=== PATIENT | female | born 1935 | race Caucasian/White ===

== ENCOUNTER → 2023-05-29 09:27 | Outpatient (REF) | payer OTHER, SELFPAY ==
[2023-05-29 10:34] LABS: INR 2.03; PT 22.8 Sec (11.4-14.6)
== END ==
LOC: OLABWIL 09:27
PROVIDERS: ATTENDING PHYSICIAN Internal Medicine
DX: I48.0 Paroxysmal atrial fibrillation (principal)
CPT/HCPCS: 36415; 85610

== ENCOUNTER → 2023-06-06 11:31 | Outpatient (REF) | payer OTHER, SELFPAY ==
[2023-06-06 12:09] LABS: INR 3.61
== END ==
LOC: OLABWIL 11:31
PROVIDERS: ATTENDING PHYSICIAN Internal Medicine
DX: I48.0 Paroxysmal atrial fibrillation (principal)
CPT/HCPCS: 36415; 85610

== ENCOUNTER → 2023-06-15 09:41 | Outpatient (REF) | payer OTHER, SELFPAY ==
[2023-06-15 10:27] LABS: INR 1.89; PT 21.9 Sec (11.4-14.6)
== END ==
LOC: OLABWPC 09:41
PROVIDERS: ATTENDING PHYSICIAN Internal Medicine Cardiovascular Disease
DX: I48.0 Paroxysmal atrial fibrillation (principal)
CPT/HCPCS: 36415; 85610

== ENCOUNTER 2023-08-17 19:57 | Observation (INO) | payer OTHER, SELFPAY ==
[2023-08-17] VITALS (8 sets, daily range): BP systolic 125–160; BP diastolic 72–98; PULSE 85–90; BMI 17.3
[2023-08-17 17:43] LABS: Urine Albumin Negative (Neg - Trace); Urine Bilirubin Negative (Negative); Urine Character Clear (Clear); Urine Color Yellow; Urine Glucose Negative (Negative); Urine Ketone 2+ (Negative); Urine Leukocyte Trace (Negative); Urine Nitrite Negative (Negative); Urine Occult Blood Negative (Negative); Urine Specific Gravity 1.025 (<1.030); Urine Urobilinogen Negative (Neg - 1+)
[2023-08-17 17:48] LABS: % Basophils 0.2 % (0-2); % Immature Granulocytes 0.4 % (0-0.5); % Lymphocytes 9.6 % (20.5-51.1); % Monocytes 8.6 % (1.7-9.3); % Neutrophils 81.2 % (42.2-75.2); Absolute Monocytes 0.9 10^3/uL (0.1-0.6); Absolute Neutrophils 8.8 10^3/uL (1.4-6.5); Hematocrit 36.5 % (37.0-47.0); Mean Corp Hgb Conc. 35.6 g/dL (33.0-37.0); Mean Corpuscular Hgb 32.2 pg (27.0-31.0); Mean Corpuscular Volume 90.3 fL (81.0-99.0); Mean Platelet Volume 10.4 fL (7.4-10.4); Nucleated Red Blood Cells % 0 %; Platelet Count 163 10^3/uL (130-400); Red Blood Cell Count 4.04 10^6/uL (4.20-5.40); Red Cell Dist. Width 13.1 % (11.5-14.5); White Blood Cell Count 10.8 10^3/uL (4.8-10.8)
[2023-08-17 17:49] LABS: Urine Mucus Few
[2023-08-17 17:50] LABS: Urine Bacteria Few (Negative); Urine Red Blood Cell 0-2 /HPF (0-2)
[2023-08-17 18:00] LABS: ALT (SGPT) 14 U/L (0-35); AST (SGOT) 20 U/L (14-36); Albumin 4.2 g/dl (3.5-5.0); Alkaline Phosphatase 31 U/L (38-126); Blood Urea Nitrogen 13 mg/dl (7-17); Calcium 9.5 mg/dl (8.4-10.2); Carbon Dioxide 27 mmol/L (22-30); Chloride 99 mmol/L (98-107); Estimated Creatinine Clearance 46 ml/min; Glucose 129 mg/dl (70-99); Potassium 3.8 mmol/L (3.5-5.1); Sodium 134 mmol/L (135-145); Total Bilirubin 1.3 mg/dl (0.2-1.3); Total Protein 6.6 g/dl (6.3-8.2); eGFR > 60.00
--- NOTE | 2023-08-17 18:12 | ED.GENMED ---
History of Present Illness
<Ariella Ambrose PA-C - Last Filed: 08/18/23 00:38>
General
Chief Complaint: Change in Mental Status
Source: patient, family and correction
Exam Limitations: clinical condition and altered mental status
Time Seen by Provider: 08/17/23 17:58
Travel History
Have you had any contact with someone who has COVID-19?: No
Do you have any symptoms of coronavirus? Fever > 100 degrees, chills, cough, shortness of breath, sore throat, loss of taste or smell, muscle aches, or headache?: No
History of Present Illness
History of Present Illness:
87 y/o F with h/o afib on eliquis, hypothyroid, chf
here with a change in mental status
from [facility] personal care (meaning pt can care for her ADLs but the staff gives meds to her
found at 4 pm in her bed without pants on sweating, underwear saturated in the bathroom and she wasn't putting words together well, seemed weak, wasn't able to sit up and as time did go on, pt seemed more alert and responded a little better but not
herself
pt is usually A&Ox3
she has nocomplaints and doesn't know why she is here, she does know she is in the hospital
no obvious head trauma
no recent illness
i spoke with RN at the facility who doesn't know when the last time she was seen normal was
son is here and says she has had some confusion regarding date/time and gets her days mixed up recently over the past several weeks to months but hasn't been this confused that he has noticed, however, he thinks 'it has been bulding'
the RN at the facility said she that she apparently got a dose of mecilzine at 5 am and she isn't sure why, there wasn't a note to state why, this is a PRN med.
Past History
<Ariella Ambrose PA-C - Last Filed: 08/18/23 00:38>
Past History
ED Past Medical History: Arrthythmia and CHF
ED Past Surgical History: Cardiac and Cholecystectomy
Social History
Tobacco: Non-smoker
Alcohol: None
Drug: None
Personal:
Living: assisted living
Employment: Not employed
Family History
Family History: Other (Noncontributory)
Review of Systems
<MATTEO Villavicencio Last Filed: 08/18/23 00:38>
Review of Systems
Allergies reviewed?: Yes
All Other Systems: Not applicable
Phy Exam
<MATTEO Villavicencio Last Filed: 08/18/23 00:38>
Physical Exam
Physical Exam:
GENERAL: Alert , in no apparent distress
HEAD: ncat
EYE: pupils equal and reactive
NECK: Supple
ENT: o/p clr, mmm.
CARDIAC: Regular rate and rhythm .no edema
LUNGS: Clear breath sounds bilaterally, no acute respiratory distress, no wheezes/rales/rhonchi
ABDOMEN: Soft, without focal tenderness, no r/g, no cvat, normal bowel sounds
NEUROLOGICAL: Alert and oriented x 2 (disoriented to time) cn intact, 5/5 strength, sensation intact, no focal neuro deficits
SKIN: Warm and dry, skin intact. no bruising
MUSCULOSKELETAL: No edema, well perfused. neg samuel's sign
moves both hips
PSYCH: confused mildly irritated about being here, josh at her gown
Course
<MATTEO Villavicencio Last Filed: 08/18/23 00:38>
Orders/Labs/Results
Orders:
Orders
08/17/23 Dinner
Regular
At Your Request: Limited Participation
Does patient need a safe tray?: No
08/17/23 17:35
CMP [Comprehensive Metabolic Panel] Urgent
Complete Blood Count/With Diff Urgent
Creatine Phosphokinase Urgent
Comment: ADD ON
TSH Reflex To Free T4 Urgent
Comment: ADD ON
Urinalysis Reflex To Culture Urgent
Date Specimen was Collected: 08/17/23
Time Specimen was Collected: 17:34
Urine Microscopic Reflex Cult Urgent
08/17/23 18:13
Add On- LAB Urgent
Tests Added?: tsh free t4
CT Head W/o Iv Contrast Urgent
Comment:
Reason For Exam: confused
08/17/23 18:14
Add On- LAB Urgent
Tests Added?: cpk
08/17/23 18:16
Electrocardiogram (*1) Urgent
Reason for Study: Other
Other Reason for Exam: ams
EKG- Treatment ONCE
COVID-19 Antigen Urgent
Source: Nasal Swab
Influenza A+B Rapid Molecular Urgent
JANUARY Source: Nasal Swab
Specimen Description:
08/17/23 19:05
CefTRIAXone [Rocephin] 1,000 mg IV NOW STA
08/17/23 19:13
CR Chest - 2 Views Urgent
Comment:
Reason For Exam: confusion
08/17/23 19:17
Sterile Water [Sterile Water For Injection] 10 ml .ROUTE .[facility]-MED ONE
08/17/23 19:46
Admit/Transfer Patient As Directed
Co-Sign Provider:
Level of Care: Observation services
Assign to:: Medical/Surgical
Physician / Group: hospitalist
Diagnosis: metabolic encephalopathy, cystitis
08/17/23 19:48
Code Status As Directed
Resuscitation Status: Do not resuscitate
Reached after discussion with pt or family/Healthcare POA: Yes
DNR Bracelet Application ONCE
08/17/23 22:24
0.9% Sodium Chloride 250 ml [Nss] 250 ml IV BOLUS
Acetaminophen [Tylenol] 650 mg PO Q4HPRN PRN
Amlodipine [Norvasc] 5 mg PO HS
Apixaban [Eliquis] 2.5 mg PO BID
Bisacodyl [Dulcolax] 10 mg RECTAL [id number] PRN
Docusate W/Senna [Senokot-S] 1 tablet PO BIDPRN PRN
Furosemide [Lasix] 20 mg PO BID AT 0800,1600
Latanoprost [Xalatan Ophthalmic Solution] See Dose Instructions BOTH EYES HS
Loperamide [Imodium] 2 mg PO Q6HPRN PRN
Losartan [Cozaar] 50 mg PO BID
Ondansetron Injectable [Zofran] 4 mg IV Q6HPRN PRN
Polyethylene Glycol Powder [Miralax] 17 grams PO DAILYPRN PRN
Rosuvastatin Calcium [Crestor] 10 mg PO HS
Simethicone [Mylicon] 80 mg PO [id number] PRN
08/17/23 22:24
VTE Contraindication Routine
VTE Mechanical Device Contraindication: Medical Contraindication
Pharmocologic Contraindication: Medical Contraindication
Activity As Directed
Activity Level: With Assistance
Orthostatic Vital Signs As Directed
Orthostatic VS Frequency: Now
Vital Signs As Directed
Frequency: Per unit guidelines
08/17/23 22:34
Carboxymethylcellulose [Refresh Celluvisc Gel] 1 drops BOTH EYES DAILYPRN PRN
08/18/23 06:00
Basic Metabolic Panel IN AM
Complete Blood Count/No Diff IN AM
Magnesium IN AM
Levothyroxine [Synthroid] 25 mcg PO DAILY @ 0600
08/18/23 08:00
Calcium Carbonate [Oscal Demarco 500] 500 mg PO DAILY
Multivitamin [Theragran] 1 tablet PO DAILY
Potassium Chloride [KCl] 10 meq PO DAILY
08/18/23 18:00
Metoprolol Xl [Toprol Xl] 50 mg PO QPM
08/18/23 20:00
CefTRIAXone [Rocephin] 1,000 mg IV Q24H
Abnormal Lab Results
08/17/23
17:35
RBC 4.04 L 10^6/uL
(4.20-5.40)
Hct 36.5 L %
(37.0-47.0)
MCH 32.2 H pg
(27.0-31.0)
Absolute Neuts (auto) 8.8 H 10^3/uL
(1.4-6.5)
Absolute Lymphs (auto) 1.0 L 10^3/uL
(1.2-3.4)
Absolute Monos (auto) 0.9 H 10^3/uL
(0.1-0.6)
Neutrophils % 81.2 H %
(42.2-75.2)
Lymphocytes % 9.6 L %
(20.5-51.1)
Sodium 134 L mmol/L
(135-145)
Glucose 129 H mg/dl
(70-99)
Alkaline Phosphatase 31 L U/L
(38-126)
Urine Ketones 2+ A
(Negative)
Leukocyte Esterase Rfl Trace A
(Negative)
Urine Bacteria (Reflex) Few A
(Negative)
08/17/23 17:35
08/17/23 17:35
Vital Signs
Initial and Last Documented VS:
Initial Vital Signs
Temp Pulse Resp BP Pulse Ox
99 F 83 18 151/98 94
08/17/23 17:20 08/17/23 17:20 08/17/23 17:20 08/17/23 17:20 08/17/23 17:20
Last Documented Vital Signs
Temp Pulse Resp BP Pulse Ox
98.2 F 87 15 144/86 97
08/17/23 23:04 08/17/23 23:15 08/17/23 23:04 08/17/23 23:15 08/17/23 23:04
<Amanda Eason MD - Last Filed: 08/17/23 19:22>
Orders/Labs/Results
Orders:
Orders
08/17/23 Dinner
Regular
At Your Request: Limited Participation
Does patient need a safe tray?: No
08/17/23 17:35
CMP [Comprehensive Metabolic Panel] Urgent
Complete Blood Count/With Diff Urgent
Creatine Phosphokinase Urgent
Comment: ADD ON
TSH Reflex To Free T4 Urgent
Comment: ADD ON
Urinalysis Reflex To Culture Urgent
Date Specimen was Collected: 08/17/23
Time Specimen was Collected: 17:34
Urine Microscopic Reflex Cult Urgent
08/17/23 18:13
Add On- LAB Urgent
Tests Added?: tsh free t4
CT Head W/o Iv Contrast Urgent
Comment:
Reason For Exam: confused
08/17/23 18:14
Add On- LAB Urgent
Tests Added?: cpk
08/17/23 18:16
Electrocardiogram (*1) Urgent
Reason for Study: Other
Other Reason for Exam: ams
EKG- Treatment ONCE
COVID-19 Antigen Urgent
Source: Nasal Swab
Influenza A+B Rapid Molecular Urgent
JANUARY Source: Nasal Swab
Specimen Description:
08/17/23 19:05
CefTRIAXone [Rocephin] 1,000 mg IV NOW STA
08/17/23 19:13
CR Chest - 2 Views Urgent
Comment:
Reason For Exam: confusion
08/17/23 19:17
Sterile Water [Sterile Water For Injection] 10 ml .ROUTE .[facility]
08/17/23 19:46
Admit/Transfer Patient As Directed
Co-Sign Provider:
Level of Care: Observation services
Assign to:: Medical/Surgical
Physician / Group: hospitalist
Diagnosis: metabolic encephalopathy, cystitis
08/17/23 19:48
Code Status As Directed
Resuscitation Status: Do not resuscitate
Reached after discussion with pt or family/Healthcare POA: Yes
DNR Bracelet Application ONCE
08/17/23 22:24
0.9% Sodium Chloride 250 ml [Nss] 250 ml IV BOLUS
Acetaminophen [Tylenol] 650 mg PO Q4HPRN PRN
Amlodipine [Norvasc] 5 mg PO HS
Apixaban [Eliquis] 2.5 mg PO BID
Bisacodyl [Dulcolax] 10 mg RECTAL [id number] PRN
Docusate W/Senna [Senokot-S] 1 tablet PO BIDPRN PRN
Furosemide [Lasix] 20 mg PO BID AT 0800,1600
Latanoprost [Xalatan Ophthalmic Solution] See Dose Instructions BOTH EYES HS
Loperamide [Imodium] 2 mg PO Q6HPRN PRN
Losartan [Cozaar] 50 mg PO BID
Ondansetron Injectable [Zofran] 4 mg IV Q6HPRN PRN
Polyethylene Glycol Powder [Miralax] 17 grams PO DAILYPRN PRN
Rosuvastatin Calcium [Crestor] 10 mg PO HS
Simethicone [Mylicon] 80 mg PO [id number] PRN
08/17/23 22:24
VTE Contraindication Routine
VTE Mechanical Device Contraindication: Medical Contraindication
Pharmocologic Contraindication: Medical Contraindication
Activity As Directed
Activity Level: With Assistance
Orthostatic Vital Signs As Directed
Orthostatic VS Frequency: Now
Vital Signs As Directed
Frequency: Per unit guidelines
08/17/23 22:34
Carboxymethylcellulose [Refresh Celluvisc Gel] 1 drops BOTH EYES DAILYPRN PRN
08/18/23 06:00
Basic Metabolic Panel IN AM
Complete Blood Count/No Diff IN AM
Magnesium IN AM
Levothyroxine [Synthroid] 25 mcg PO DAILY @ 0600
08/18/23 08:00
Calcium Carbonate [Oscal Demarco 500] 500 mg PO DAILY
Multivitamin [Theragran] 1 tablet PO DAILY
Potassium Chloride [KCl] 10 meq PO DAILY
08/18/23 18:00
Metoprolol Xl [Toprol Xl] 50 mg PO QPM
08/18/23 20:00
CefTRIAXone [Rocephin] 1,000 mg IV Q24H
Abnormal Lab Results
08/17/23
17:35
RBC 4.04 L 10^6/uL
(4.20-5.40)
Hct 36.5 L %
(37.0-47.0)
MCH 32.2 H pg
(27.0-31.0)
Absolute Neuts (auto) 8.8 H 10^3/uL
(1.4-6.5)
Absolute Lymphs (auto) 1.0 L 10^3/uL
(1.2-3.4)
Absolute Monos (auto) 0.9 H 10^3/uL
(0.1-0.6)
Neutrophils % 81.2 H %
(42.2-75.2)
Lymphocytes % 9.6 L %
(20.5-51.1)
Sodium 134 L mmol/L
(135-145)
Glucose 129 H mg/dl
(70-99)
Alkaline Phosphatase 31 L U/L
(38-126)
Urine Ketones 2+ A
(Negative)
Leukocyte Esterase Rfl Trace A
(Negative)
Urine Bacteria (Reflex) Few A
(Negative)
08/17/23 17:35
08/17/23 17:35
Vital Signs
Initial and Last Documented VS:
Initial Vital Signs
Temp Pulse Resp BP Pulse Ox
99 F 83 18 151/98 94
08/17/23 17:20 08/17/23 17:20 08/17/23 17:20 08/17/23 17:20 08/17/23 17:20
Last Documented Vital Signs
Temp Pulse Resp BP Pulse Ox
98.2 F 87 15 144/86 97
08/17/23 23:04 08/17/23 23:15 08/17/23 23:04 08/17/23 23:15 08/17/23 23:04
<Ariella Ambrose PA-C - Last Filed: 08/18/23 00:38>
MDM/Problems Addressed
Differential Diagnosis Includes:
uti, ams, cva, ich, dementia
MDM/Problems Addressed:
87 y/o F [facility] resident
seems much more confused than usual today when seen by staff this afternoon
unsure last known well time
no recent illness
was incontinent and with her pants off while in bed
no signs of trauma
no cmoplaints
here oriented x 2
doesn't know why she is here
pulling at her gown occasinoally, seems confused but redirectable
no focal deficits
urine is TRACE positive with some bacteria and mild LE but not many wbc and no nitrite
normal wbc but with left shift and temp 99
at this point, could be urine and some underlying dementia
also there was a ? dose of meclizine given to her this am when it is not usually given?? but that was at 5 am and doubtful to be the cause of confusion;
will admit
<Ariella Ambrose PA-C - Last Filed: 08/18/23 00:38>
*Critical Care Note
Total Time (30-74mins, 75-104mins- exclusive of procedures): Not Applicable
ED Attending Note
<Ariella Ambrose PA-C - Last Filed: 08/18/23 00:38>
-
Portions of this chart may have been created with voice recognition software.� Occasional wrong word or��sound alike� substitutions may have occurred due to the inherent limitations of voice recognition software.
<Amanda Eason MD - Last Filed: 08/17/23 19:22>
ED Attending Note
Patient seen and examined by attending physician: Yes
I performed the substantive portion of visit, reviewed & personally made and approve the management plan that is documented in note by myself or ANGELA.: Yes
ED Attending Note:
Patient presents in no acute distress. Nonfocal neurological exam. Lungs are clear abdomen is soft
Discharge Plan
Departure
Patient Disposition: Admit
Date of Disposition: 08/17/23
Time of Disposition: 18:54
Admit to: Med/Surg
Presentation/result/management discussed w/ accepting MD/DO: Hospitalist
Condition: Fair
Covid-19: Not Applicable
Discharge Problem:
Confusion
Interventions
Interventions:
*Risk Screen - Suicide Last Done: 08/17/23 17:20
*General Assessment Last Done: 08/17/23 17:20
*Neglect/Abuse Screening Last Done: 08/17/23 17:20
ED- Fall Risk Assessment Last Done: 08/17/23 17:20
*ED COVID-19 Vaccine History Last Done: 08/17/23 17:20
*Nursing Disposition Last Done: 08/17/23 22:25
ED- Neurological Assessment Last Done: 08/17/23 17:20
ED Swallowing Screen Last Done: 08/17/23 19:28
Discharge Date and Time
Discharge Date/Time: 08/17/23 22:25
[2023-08-17 18:46] LABS: COVID-19 Antigen Negative (Negative)
[2023-08-17 18:56] LABS: Creatine Phosphokinase 32 U/L (30-135)
[2023-08-17] MEDS: ROCEPHIN 1000 MG IV (19:23)
--- NOTE | 2023-08-17 19:26 | HPS.HSE ---
Family Physician
-
Family Physician: Carie Proctor
Chief Complaint
-
Altered mental status
History of Present Illness
This is an 87 y.o-year-old female with past medical history significant for atrial fibrillation on anticoagulation, s/ppm, hypothyroidism, history of CHF, presents to the emergency department with episode concerning for acute changes in mental
status. Patient lives at an assisted living facility where she had complete care for self cefepime given by Ms. my staff. She was found this afternoon indicating in bed with urinary incontinence and appeared confused. Unable to answer questions.
Different from apparent baseline. Unknown last normal. The son reported that the patient has been having increasing confusion at least for the last 6 days. She specifically reported that 3 days ago she seemed more confused than baseline. He also
reported that the patient has been having declining mental status over the last 6 months with difficulties in memory and intermittent confusion. No previous diagnosis of dementia. Upon arrival in the emergency department the patient had low-grade
temp but is otherwise at baseline. She was alert and oriented x 3. She was following commands. She only noted mild lower abdominal discomfort. She specifically denies knowledge of incontinence, dysuria, hematuria, flank pain, fevers. She
reports chronic diarrhea. Subjective chills noted while in the ED. She denies any headache, cough, shortness of breath, chest pain, palpitations, lightheadedness or dizziness. She endorsed some mild nausea which she attributes to feeling hungry
reporting that her appetite which was low few days ago is now back. She denies diarrhea. P.o. intake has been unchanged compared to baseline. No recent changes in medications.
In ED she had a temp of 99.5. BP 141/90, pulse 85, RR 16 and O2 sat of 95%. ECG w/ NSR, rate 84, pacs, LBBB. CT head was negative. U/A with trace bacteria but no pyuria. Trace LE and ketones. Xray without focal infiltrates. CBC within normal
limits. Chemistries shows Na of 134 unchanged from last tear. Labs otherwise unremarkable.
Medical History
Past Medical History
Past Medical History: Reports Arrhythmia (Atrial fibrillation), CHF, HTN and Hypothyroidism
Past Surgical History: Reports None
Social History
Unable to obtain full social history at this time due to: Dementia
Tobacco: Non-smoker
Alcohol: None
Drug: None
Personal:
Living: Assisted Living
Employment: Retired
Family History
Family History: Not pertinent
Allergies / Home Medications
Allergies reflects when Allergies were last updated in [employer].
Home Medications with original date entered in [employer]
Allergy/Medication List:
Allergies
Allergy/AdvReac Type Severity Reaction Status Date / Time
No Known Allergies Allergy Unverified 07/01/22 01:59
Home Medications
acetaminophen 325 mg capsule 650 mg PO Q4H PRN mild pain/temp>100F 07/01/22
acetaminophen 500 mg capsule 1,000 mg PO Q8H PRN moderate-severe pain 07/01/22
amlodipine 5 mg tablet 5 mg PO HS 07/01/22
apixaban 2.5 mg tablet (Eliquis) 2.5 mg PO BID 07/01/22
docusate sodium 100 mg capsule (Colace) 100 mg PO HS 07/01/22
furosemide 20 mg tablet 20 mg PO BID 07/01/22
levothyroxine 25 mcg tablet 25 mcg PO DAILY 07/01/22
losartan 50 mg tablet 50 mg PO BID 07/01/22
metoprolol succinate 50 mg tablet,extended release 24 hr 50 mg PO QPM 07/01/22
peg 400-propylene glycol 0.4 %-0.3 % eye gel drops (Systane Gel) 1 drp ophthalmic (eye) DAILY PRN dry eyes 07/01/22
potassium chloride 10 mEq tablet,extended release 10 meq PO DAILY 07/01/22
rosuvastatin 10 mg tablet 10 mg PO HS 07/01/22
sennosides 8.6 mg tablet (senna) 8.6 mg PO DAILY 07/01/22
simethicone 80 mg chewable tablet 80 mg PO Q12H PRN gas 07/01/22
calcium carbonate (Calcium 600) 600 mg PO DAILY 08/17/23
carbamide peroxide 6.5 % ear drops 5 drp EACH EAR [id number] PRN ear wax 08/17/23
latanoprost 0.005 % eye drops 1 drp BOTH EYES HS 08/17/23
loperamide 2 mg capsule (Imodium A-D) 2 mg PO Q6H PRN diarrhea 08/17/23
meclizine 25 mg tablet 50 mg PO DAILY PRN motion sickness 08/17/23
multivitamin with minerals 1 tab PO DAILY 08/17/23
vit A 300 mcg-C 200 mg-E 27 mg-lutein 2 mg and minerals tablet (I-Marily) 1 tab PO QPM 08/17/23
Review of Systems
-
History Source: Patient and Family
Constitutional: Reports Chills
EENT: Reports No Symptoms
Respiratory: Reports No Symptoms
Cardiac: Reports No Symptoms
Abdomen/GI: Reports Nausea and Diarrhea
: Reports Incontinence
Musculoskeletal: Reports No Symptoms
Skin: Reports No Symptoms
Neurological: Reports Weakness
Endocrine: Reports No Symptoms
Hematologic/Lymphatic: Reports No Symptoms
Psych: Reports No Symptoms
Physical Exam
Vital Signs
Vital Signs
Temp Pulse Resp BP Pulse Ox
99 F 82 21 136/90 94
08/17/23 17:20 08/17/23 19:15 08/17/23 19:15 08/17/23 19:00 08/17/23 19:15
Physical Exam
General: Well Developed, No Apparent Distress, Comfortable and Conversant
HEENT: NormoCephalic, Anicteric, Moist mucous membranes, Atraumatic and PERRLA
Respiratory: Clear
Cardiac: S1/S2 and Regular Rhythm
Breast: Deferred by me
GI: Soft, Non Distended, Normal Bowel Sounds and Tender (suprapubic)
Rectal: Deferred by Provider
Genito-urinary: No costovertebral tender
Musculoskeletal: No Clubbing, No Cyanosis and No Edema
Skin: Warm and Dry
Neuro: AO x 3 and Nonfocal/grossly intact
Psych: Calm
Laboratory Results
-
08/17/23 17:35
08/17/23 17:35
Laboratory Results
Total Bilirubin 1.3 mg/dl (0.2-1.3) 08/17/23 17:35
AST 20 U/L (14-36) 08/17/23 17:35
ALT 14 U/L (0-35) 08/17/23 17:35
Alkaline Phosphatase 31 U/L (38-126) L 08/17/23 17:35
Data Reviewed
-
Diagnostic Radiology: Image Personally Visualized and interpreted
CT Scan: Report Reviewed by me
Medical Tests (Nuc Med, Echo, EKG etc): Image Personally Visualized and interpreted
Lab Data: Labs Reviewed by me
Old Records: Reviewed
Impression/Plan
-
IMPRESSION:
Generally healthy 87 y.o with h/o hypothyroidism, hld, afib, HTN, CHF presenting to ED with acute episode of AMS (confusion, poor response, decreased appetite and incontinence). Appears to have worsening confusion at least 2 days ago according to
son and possibly since about 5 days ago.W/U in ED negative for acute stroke. Patient is essentially back to baseline with no focal neurological deficits. ECG w/o acute findings. Labs mostly unremarkable. Xray clear. COVID negative. U/A slightly
positive.
PLAN:
1.AMS- Suspect infectious etiology and most likely acute cystitis in setting of progressing dementia. There is low grade temp of 99.5. However urine is fairly equivocal. COVID is negative. Xray shows no signs of infiltrates or fluid overload.
Electrolytes are normal. Patient back to baseline without focal deficits. Unlikely TIA.
- admit to med surg
- urine cultures
- ceftriaxone for now
- she appears euvolemic and no signs of acute dehydration. Small fluid challenge of 500 ml NS only
- check tsh
- orthostatic vs
2. AFIB - NSR at this time.
- apixaban 2.5 bid
- rate control with metoprolol succinate
- keep K, Mag > 4,2
3. HTN - Normotensive.
- continue amlodipine, losartan and metoprolol
4. Hypothyroid - no signs of overt hypothyroidism
- tsh pending
- continuing levothyroxine 25mcg daily
5. Chronic diarrhea
- immodium prn
Regular diet
DVT - on apixaban
Code Status - DNR
[2023-08-17 19:59] LABS: TSH Reflex To Free T4 0.54 uIU/ml (0.47-4.68)
[2023-08-17] MEDS: NSS 250 IV (23:14)
[2023-08-17] MEDS: COZAAR 50 MG PO (23:15)
[2023-08-17] MEDS: XALATAN OPHTHALMIC SOLUTION 1 DROP BOTH EYES (23:16)
[2023-08-17] MEDS: LASIX 20 MG PO (23:16)
[2023-08-17] MEDS: CRESTOR 10 MG PO (23:16)
[2023-08-17] MEDS: NORVASC 5 MG PO (23:16)
[2023-08-17] MEDS: ELIQUIS 2.5 MG PO (23:16)
--- NOTE | 2023-08-17 23:30 | PTCARENOTE ---
Pt brought to floor from ED A+OX2, able to state name, is in hospital - stating 'it is the end of June'. Admission completed with patient and [facility] transfer form. Pt very forgetful, bed alarm in place. Care is ongoing.
--- NOTE | 2023-08-17 23:40 | PTCARENOTE ---
Pt with very confused conversation at times- stating 'get me some wet tissues for my lips' When asked pt if she meant chapstick she replied with yes. Is able to answer what different items in room are- 'water cup, tissue box.' Unable to follow
simple directions. Bed alarm in place. House ADVERTISING TEACHER aware- no new orders at this time.
[2023-08-18] MEDS: SYNTHROID 25 MCG PO (05:23)
[2023-08-18 05:50] VITALS: BP 137/84
[2023-08-18] MEDS: TYLENOL/FEVERALL 650 MG RECTAL (05:50)
[2023-08-18 05:51] LABS: Hematocrit 35.7 % (37.0-47.0); Hemoglobin 12.9 g/dL (12.0-16.0); Mean Corp Hgb Conc. 36.1 g/dL (33.0-37.0); Mean Corpuscular Hgb 32.3 pg (27.0-31.0); Mean Corpuscular Volume 89.5 fL (81.0-99.0); Mean Platelet Volume 10.4 fL (7.4-10.4); Platelet Count 149 10^3/uL (130-400); Red Blood Cell Count 3.99 10^6/uL (4.20-5.40); Red Cell Dist. Width 13.1 % (11.5-14.5); White Blood Cell Count 10.5 10^3/uL (4.8-10.8)
--- NOTE | 2023-08-18 06:11 | W.PN.UPDATE ---
Update Note
Progress Note Update
Patient continues with fluctuating confusion. Rectal temp 100.5. Rocephin IV continues for possible UTi source of infection. Family notes patient has had increasing confusion over past 6 months but has been worse past few days.. she has pacemaker so
clearance for possible MRI/MRA will be needed. Last known normal is unknown from prior to admission here.
--- NOTE | 2023-08-18 06:13 | PTCARENOTE ---
Pt woken up for AM meds, pt more confused, unable to state birthday, stuttering, difficulty getting words out, unable to answer questions. [facility] completed pt -2 for mild aphasia and unable to state month - stating '43'. BP 137/84 HR 93. House NAIL ASSEMBLY MACHINE OPERATOR
notified, states no need for rapid response at this time, temp 100.6 rectal, tylenol given.
[2023-08-18 06:32] LABS: Blood Urea Nitrogen 12 mg/dl (7-17); Calcium 9.1 mg/dl (8.4-10.2); Carbon Dioxide 28 mmol/L (22-30); Chloride 100 mmol/L (98-107); Estimated Creatinine Clearance 46 ml/min; Glucose 130 mg/dl (70-99); Magnesium 1.7 mg/dl (1.6-2.3); Potassium 3.3 mmol/L (3.5-5.1); Sodium 133 mmol/L (135-145); eGFR > 60.00
[2023-08-18] MEDS: THERAGRAN 1 TABLET PO (08:31)
[2023-08-18] MEDS: KCL 10 MEQ PO ×2 (08:32→10:46)
[2023-08-18] MEDS: COZAAR 50 MG PO ×2 (08:32→19:43)
[2023-08-18] MEDS: LASIX 20 MG PO ×2 (08:32→15:11)
[2023-08-18] MEDS: OSCAL CAL 500 500 MG PO (08:32)
[2023-08-18] MEDS: ELIQUIS 2.5 MG PO ×2 (08:32→19:43)
[2023-08-18 08:38] VITALS: BP 130/78
--- NOTE | 2023-08-18 09:40 | W.PN.HOSP.TC ---
Today's Communication/Plan
-
Empiric antibiotics pending urine cultures
Physical therapy evaluation
Assessment / Plan
Assessment / Plan
Impression:
Generally healthy 87 y.o with h/o hypothyroidism, hld, afib, HTN, CHF presenting to ED with acute episode of AMS (confusion, poor response, decreased appetite and incontinence). Appears to have worsening confusion at least 2 days ago according to
son and possibly since about 5 days ago.W/U in ED negative for acute stroke. Patient is essentially back to baseline with no focal neurological deficits. ECG w/o acute findings. Labs mostly unremarkable. Xray clear. COVID negative. U/A slightly
positive.
Toxic metabolic encephalopathy possibly secondary to UTI/fever in the patient with dementia
Dementia unspecified type vascular versus senile.
Hypokalemia
Conditions prior to admission:
Paroxysmal atrial fibrillation
Sick sinus syndrome status post pacemaker
Anticoagulation with apixaban
Essential hypertension
Hypothyroidism
Chronic diarrhea.
Plan:
Toxic metabolic encephalopathy suspect secondary to fever and possible UTI.
No focal findings on neurologic exam
Patient with delayed response to questions, although oriented to name, birthday, and place.
CT scan of the head with no acute abnormalities.
Presentation does not suggest any epileptic activity.
Slightly abnormal urinalysis with pending urine cultures, although patient could not offer any complaints suggestive of UTI
Chest x-ray within normal limits
TSH within normal limits.
Continue empiric antibiotics/ceftriaxone pending urine cultures. Blood cultures had not been collected in ED.
Currently no indication for additional imaging unless patient declared new neurologic symptoms.
Physical/Occupational Therapy assessment
Paroxysmal atrial fibrillation
Pacemaker in place
Currently in normal sinus rhythm.
Rate controlled with with metoprolol.
Continue anticoagulation with apixaban.
Essential hypertension.
No prior history of CHF, although patient is on Lasix with potassium supplementation
Current volume status compensated
Monitor closely.
Replete potassium and follow BMP.
Hypothyroidism
TSH compensated.
Continue levothyroxine
Chronic diarrhea.
Continue Imodium.
Disposition: Patient lives at assisted living with provision of meals and medications [id number]. At baseline independent with ambulation. Physical/Occupational Therapy while in the hospital for further disposition.
Plan of care discussed with patient's son over the phone.
CODE STATUS DNR.
DVT prophylaxis apixaban.
Anticipated Discharge: 24 - 48 hours
Subjective/Interval History
-
Date of Service: August 18, 2023
Objective Data
-
Labs:
Laboratory Results
08/18/23
05:24
WBC 10.5
Hgb 12.9
Hct 35.7 L
Plt Count 149
Sodium 133 L
Potassium 3.3 L
Chloride 100
Carbon Dioxide 28
BUN 12
Creatinine 0.6
Glucose 130 H
Calcium 9.1
Vital Signs:
Vital Signs
Temp Pulse Resp BP Pulse Ox
98.1 F 96 18 130/78 96
08/18/23 08:38 08/18/23 08:38 08/18/23 08:38 08/18/23 08:38 08/18/23 08:41
I&O
08/17/23 08/18/23 08/19/23
06:59 06:59 06:59
Intake Total 0 / 0
Balance 0 / 0
Physical Exam
-
General: Well Developed and No Apparent Distress
HEENT: Normocephalic, Atraumatic and Moist Mucous Membranes
Respiratory: Clear to Auscultation
Cardiac: Regular Rhythm and S1/S2; Negative Murmur, Rub or Gallop
GI: Soft, Nontender, Nondistended and Normal Bowel Sounds; Negative Organomegaly
Rectal: Deferred by Provider
Musculoskeletal: No Clubbing, No Cyanosis and No Edema
Skin: Negative Rash
Neuro: Awake, Alert, Oriented, AO x 3 (Name and place. Knows age and able to recall birthday. Slow response to questions.) and Nonfocal/Grossly Intact
[2023-08-18 10:47] VITALS: BP 141/81; PULSE 89; O2SAT 96
--- NOTE | 2023-08-18 14:52 | CM ---
met with patient at bedside who was confused and could not answer any questions.i called patient's son popeye who told me patient was living in [place] until jan 2022 when she entered [place] at [facility].patient ambulated I airplane captain,she needs
assistance wiyh bathing and grooming.patient with a hx of chf,afib,htn is adm with increased confusion.she is a dnr.dcotor suspects possible uti and she is on iv rocephin. patient was seen by therapy who recommending returing to with home
pt.referral made to vn.i received a call from nikita in [place] and gave her a clinical update.she is aware that [facility] will be following patient for home pt when dc.plan return to [facility] with [facility] and home therapy.
--- NOTE | 2023-08-18 15:22 | VNURNOTE ---
Home Health Liaison spoke with patient's son Eyad by phone at 1515 to discuss [facility]N nurse/therapy, visits, schedule and homebound status. Eyad is agreeable and understands that visits at home will be 2-3 x per week to assess and teach medical
management. Eyad will be contact for [facility] visits intially.
Eyad is aware that [facility] will contact him for start of care in 1-2 days after discharge from .
[facility] referral completed in [facility].
[2023-08-18 15:48] VITALS: BP 139/81
[2023-08-18 15:58] VITALS: BMI 17.8
[2023-08-18] MEDS: TOPROL XL 50 MG PO (17:10)
[2023-08-18] MEDS: ROCEPHIN 1000 MG IV (19:43)
[2023-08-18] MEDS: STERILE WATER FOR INJECTION 10 ML IV (19:43)
[2023-08-18] MEDS: CRESTOR 10 MG PO (21:51)
[2023-08-18] MEDS: TYLENOL 650 MG PO (21:51)
[2023-08-18] MEDS: NORVASC 5 MG PO (21:51)
[2023-08-18] MEDS: XALATAN OPHTHALMIC SOLUTION 1 DROP BOTH EYES (21:51)
[2023-08-18 23:39] VITALS: BP 109/69
[2023-08-19] MEDS: SYNTHROID 25 MCG PO (05:12)
[2023-08-19 06:00] VITALS: BMI 16.7
[2023-08-19 07:40] VITALS: BP 132/70
[2023-08-19] MEDS: COZAAR 50 MG PO (07:40)
[2023-08-19] MEDS: KCL 20 MEQ PO (07:41)
[2023-08-19] MEDS: LASIX 20 MG PO (07:41)
[2023-08-19] MEDS: OSCAL CAL 500 500 MG PO (07:41)
[2023-08-19] MEDS: THERAGRAN 1 TABLET PO (07:41)
[2023-08-19] MEDS: ELIQUIS 2.5 MG PO (07:41)
[2023-08-19 08:02] LABS: % Basophils 0.2 % (0-2); % Eosinophils 0.7 % (0-6); % Immature Granulocytes 0.2 % (0-0.5); % Lymphocytes 11.3 % (20.5-51.1); % Monocytes 10.1 % (1.7-9.3); % Neutrophils 77.5 % (42.2-75.2); Absolute Eosinophils 0.1 10^3/uL (0-0.7); Absolute Monocytes 0.9 10^3/uL (0.1-0.6); Absolute Neutrophils 6.8 10^3/uL (1.4-6.5); Hematocrit 37.7 % (37.0-47.0); Hemoglobin 12.8 g/dL (12.0-16.0); Mean Corpuscular Hgb 31.8 pg (27.0-31.0); Mean Corpuscular Volume 93.8 fL (81.0-99.0); Mean Platelet Volume 10.2 fL (7.4-10.4); Nucleated Red Blood Cells % 0 %; Platelet Count 154 10^3/uL (130-400); Red Blood Cell Count 4.02 10^6/uL (4.20-5.40); Red Cell Dist. Width 13.1 % (11.5-14.5); White Blood Cell Count 8.8 10^3/uL (4.8-10.8)
[2023-08-19 08:53] LABS: Blood Urea Nitrogen 15 mg/dl (7-17); Calcium 9.3 mg/dl (8.4-10.2); Carbon Dioxide 29 mmol/L (22-30); Chloride 98 mmol/L (98-107); Estimated Creatinine Clearance 45 ml/min; Glucose 100 mg/dl (70-99); Potassium 3.6 mmol/L (3.5-5.1); Sodium 134 mmol/L (135-145); eGFR > 60.00
--- NOTE | 2023-08-19 09:22 | W.PN.HOSP.TC ---
Today's Communication/Plan
-
Change antibiotics to oral today. Discharge planning in progress.
Assessment / Plan
Assessment / Plan
Physical exam:
General: Well Developed, Well Nourished and No Apparent Distress
HEENT: Normocephalic, Atraumatic and Moist Mucous Membranes
Respiratory: Clear to Auscultation; Negative Wheezes, Rales or Rhonchi
Cardiac: Regular Rhythm and S1/S2
GI: Soft, Nontender and Nondistended
Musculoskeletal: No Clubbing, No Cyanosis and No Edema
Neuro: Awake, Alert and Oriented
Psych: Calm
A/P:
Impression:
Generally healthy 87 y.o with h/o hypothyroidism, hld, afib, HTN, CHF presenting to ED with acute episode of AMS (confusion, poor response, decreased appetite and incontinence). Appears to have worsening confusion at least 2 days ago according to
son and possibly since about 5 days ago.W/U in ED negative for acute stroke. Patient is essentially back to baseline with no focal neurological deficits. ECG w/o acute findings. Labs mostly unremarkable. Xray clear. COVID negative. U/A slightly
positive.
Toxic metabolic encephalopathy possibly secondary to UTI/fever in the patient with dementia
Dementia unspecified type vascular versus senile.
Hypokalemia
Conditions prior to admission:
Paroxysmal atrial fibrillation
Sick sinus syndrome status post pacemaker
Anticoagulation with apixaban
Essential hypertension
Hypothyroidism
Chronic diarrhea.
Plan:
Toxic metabolic encephalopathy suspect secondary to fever and possible UTI.
No focal findings on neurologic exam
Patient with delayed response to questions, although oriented to name, birthday, and place.
CT scan of the head with no acute abnormalities.
Presentation does not suggest any epileptic activity.
Slightly abnormal urinalysis with pending urine cultures, although patient could not offer any complaints suggestive of UTI
Chest x-ray within normal limits
TSH within normal limits.
Continue empiric antibiotics/ceftriaxone pending urine cultures. Blood cultures had not been collected in ED.
Currently no indication for additional imaging unless patient declared new neurologic symptoms.
Physical/Occupational Therapy assessment
Today on 08/18:
Change antibiotics to oral
Cultures not substantiating the infectious diagnosis but will finish a short course given high suspicion upon admission.
Discussed with son over the phone today, Eyad
Discussed with attending RN today
Plan to discharge today back to assisted living
Paroxysmal atrial fibrillation
Pacemaker in place
Currently in normal sinus rhythm.
Rate controlled with with metoprolol.
Continue anticoagulation with apixaban.
Essential hypertension.
No prior history of CHF, although patient is on Lasix with potassium supplementation
Current volume status compensated
Monitor closely.
Replete potassium and follow BMP.
Hypothyroidism
TSH compensated.
Continue levothyroxine
Chronic diarrhea.
Continue Imodium.
CODE STATUS DNR.
DVT prophylaxis apixaban.
Anticipated Discharge: Today
Subjective/Interval History
-
Date of Service: August 19, 2023
Patient alert and she feels back to her normal. Afebrile. No headaches.
Objective Data
-
Labs:
Laboratory Results
08/19/23
07:34
WBC 8.8
Hgb 12.8
Hct 37.7
Plt Count 154
Sodium 134 L
Potassium 3.6
Chloride 98
Carbon Dioxide 29
BUN 15
Creatinine 0.6
Glucose 100 H
Calcium 9.3
Vital Signs:
Vital Signs
Temp Pulse Resp BP Pulse Ox
98.5 F 79 18 132/70 95
08/19/23 07:45 08/19/23 07:45 08/19/23 07:45 08/19/23 07:40 08/19/23 07:45
I&O
08/18/23 08/19/23 08/20/23
06:59 06:59 06:59
Intake Total 0 / 0 120 / 120
Balance 0 / 0 120 / 120
--- NOTE | 2023-08-19 13:53 | W.DCSUMMARY ---
Discharge Summary
Discharge Data
Date of Admission: 08/17/23
Date of Discharge: 08/19/23
-
Pending Results: No
Hospital Course
Patient 87 years old female with history of A-fib, hypothyroidism, CHF, presented to the hospital with mental status changes. There was a concern for UTI and cognitive deficits upon presentation. He was given empirically IV antibiotic. CT scan of
her head was negative for any acute abnormalities. She was given gentle hydration. Patient improved and back to her baseline. Cultures not definitive for infection but will continue with antibiotics for just a short course given suspicion upon
admission. Otherwise, patient is hemodynamically stable, neurologically intact, and blood work unremarkable. Discussed with family. If any concerns can proceed with psychological testing for cognitive evaluation as outpatient. She was evaluated
by PT and OT who recommended home health. Patient is cleared to be discharged in stable condition today back to her assisted facility.
Discharge duration: 32 minutes
Discharge Plan
-
Patient Disposition: Assisted Living
Discharge Diagnosis/Procedures: Toxic-metabolic encephalopathy with acute confusional state. Possible urinary tract infection. Rule out cognitive deficits. Paroxysmal atrial fibrillation. Sick sinus syndrome with pacemaker. Hypertension.
Chronic diarrhea. Hypothyroidism.
Diet: Low Cholesterol
Activity: As tolerated
Blood Work: Please PCP to order CBC, BMP within 1 week
Referrals:
Carie Proctor MD [Family Provider] - in less than 1 week
Prescriptions:
New
cefuroxime axetil 250 mg Tablet
250 mg PO BID 5 Days Qty: 10 0RF
Continued
losartan 50 mg Tablet
50 mg PO BID
sennosides [senna] 8.6 mg Tablet
8.6 mg PO DAILY
metoprolol succinate 50 mg Tablet Extended Release 24 Hr
50 mg PO QPM
potassium chloride 10 mEq Tablet Extended Release
10 meq PO DAILY
amlodipine 5 mg Tablet
5 mg PO HS
levothyroxine 25 mcg Tablet
25 mcg PO DAILY
docusate sodium [Colace] 100 mg Capsule
100 mg PO HS
furosemide 20 mg Tablet
20 mg PO BID
acetaminophen 500 mg Capsule
1,000 mg PO Q8H PRN (Reason: moderate-severe pain)
simethicone 80 mg Tablet,Chewable
80 mg PO Q12H PRN (Reason: gas)
rosuvastatin 10 mg Tablet
10 mg PO HS
acetaminophen 325 mg Capsule
650 mg PO Q4H PRN (Reason: mild pain/temp>100F)
Systane Gel 0.4-0.3 % Drops,Gel
1 drp OPHTHALMIC (EYE) DAILY PRN (Reason: dry eyes)
Eliquis 2.5 mg Tablet
2.5 mg PO BID
latanoprost 0.005 % drops
1 drp BOTH EYES HS
calcium carbonate [Calcium 600] 600 mg calcium (1,500 mg) Tablet
600 mg PO DAILY
meclizine 25 mg Tablet
50 mg PO DAILY PRN (Reason: motion sickness)
carbamide peroxide 6.5 % Drops
5 drp EACH EAR [id number] PRN (Reason: ear wax)
multivitamin with minerals Tablet
1 tab PO DAILY
I-Marily 300 mcg-200 mg-27 mg-2 mg Tablet
1 tab PO QPM
loperamide [Imodium A-D] 2 mg capsule
2 mg PO Q6H PRN (Reason: diarrhea)
Discharge Orders:
Discharge Patient (As Directed); Ordered 08/19/23
Ordered By: Watson Powell
Discharge Date and Time
Discharge Date/Time: 08/19/23 15:49
Print Language: TELUGU
[2023-08-19] MEDS: CEFTIN 250 MG PO (13:57)
--- NOTE | 2023-08-19 14:59 | CM ---
patient is stable for dc back to [facility].TME sec to fever/possible uti,iv abx changed to po..patient is stable for dc back to [facility].stefany floor nurse is giving report to charly zheng at [phone] at [facility].Therapy
has rec patient returning to [facility].fax is [phone].patient signed imm letter,family to transport her back to [facility].
[2023-08-19 15:25] VITALS: BP 132/78
== END 2023-08-19 15:49 | disposition home health service (06) ==
LOC: 4 EAST ACU 19:57
PROVIDERS: Internal Medicine; Physician Assistant; ADMITTING PHYSICIAN Internal Medicine; ATTENDING PHYSICIAN Hospitalist; EMERGENCY PHYSICIAN Emergency Medicine; FAMILY PHYSICIAN Internal Medicine
DX: G92.8 Other toxic encephalopathy (principal); I48.91 Unspecified atrial fibrillation; E03.9 Hypothyroidism, unspecified; I50.9 Heart failure, unspecified; I11.0 Hypertensive heart disease with heart failure; F03.90 Unspecified dementia, unspecified severity, without behavioral disturbance, psychotic disturbance, mood disturbance, and anxiety; K52.9 Noninfective gastroenteritis and colitis, unspecified; I48.0 Paroxysmal atrial fibrillation; I49.5 Sick sinus syndrome; E78.5 Hyperlipidemia, unspecified; E87.6 Hypokalemia; Z11.52 Encounter for screening for COVID-19; Z66 Do not resuscitate; Z79.01 Long term (current) use of anticoagulants; Z79.899 Other long term (current) drug therapy; Z95.0 Presence of cardiac pacemaker
CPT/HCPCS: 70450; 71046; 80048; 80053; 81003; 81015; 82550; 83735; 84443; 85025; 85027; 87502; 87811; 93005; 97162; 97166; 97530; 99285; G0378

== ENCOUNTER → 2023-08-25 11:06 | Outpatient (REF) | payer OTHER, SELFPAY ==
[2023-08-25 11:30] LABS: % Basophils 0.4 % (0-2); % Eosinophils 2.4 % (0-6); % Immature Granulocytes 0.4 % (0-0.5); % Monocytes 10.8 % (1.7-9.3); Absolute Eosinophils 0.1 10^3/uL (0-0.7); Absolute Lymphocytes 1.4 10^3/uL (1.2-3.4); Absolute Monocytes 0.6 10^3/uL (0.1-0.6); Absolute Neutrophils 3.2 10^3/uL (1.4-6.5); Hematocrit 34.6 % (37.0-47.0); Hemoglobin 11.8 g/dL (12.0-16.0); Mean Corp Hgb Conc. 34.1 g/dL (33.0-37.0); Mean Corpuscular Hgb 32.1 pg (27.0-31.0); Mean Platelet Volume 10.3 fL (7.4-10.4); Nucleated Red Blood Cells % 0 %; Platelet Count 211 10^3/uL (130-400); Red Blood Cell Count 3.68 10^6/uL (4.20-5.40); Red Cell Dist. Width 12.9 % (11.5-14.5); White Blood Cell Count 5.4 10^3/uL (4.8-10.8)
[2023-08-25 12:37] LABS: ALT (SGPT) 15 U/L (0-35); AST (SGOT) 21 U/L (14-36); Albumin 3.3 g/dl (3.5-5.0); Alkaline Phosphatase 33 U/L (38-126); Blood Urea Nitrogen 9 mg/dl (7-17); Calcium 8.8 mg/dl (8.4-10.2); Carbon Dioxide 29 mmol/L (22-30); Chloride 99 mmol/L (98-107); Glucose 86 mg/dl (70-99); HDL Cholesterol 47 mg/dl; LDL Cholesterol, Calculated 78 mg/dl; Potassium 3.7 mmol/L (3.5-5.1); Sodium 132 mmol/L (135-145); Total Bilirubin 0.4 mg/dl (0.2-1.3); Total Cholesterol 138 mg/dl (50-199); Total Protein 5.6 g/dl (6.3-8.2); Triglyceride 68 mg/dl (10-149); Very Low Density Lipoprotein 13 mg/dl (0-30); eGFR > 60.00
[2023-08-25 13:17] LABS: TSH Reflex To Free T4 1.52 uIU/ml (0.47-4.68)
== END ==
LOC: OLABWPC 11:06
PROVIDERS: ATTENDING PHYSICIAN Nurse Practitioner Family
DX: G92.8 Other toxic encephalopathy (principal)
CPT/HCPCS: 36415; 80053; 80061; 84443; 85025

== ENCOUNTER 2023-09-10 08:53 | Emergency (ER) | payer OTHER, SELFPAY ==
--- NOTE | 2023-09-10 08:57 | ED.GENMED ---
History of Present Illness
General
Chief Complaint: Weakness
Time Seen by Provider: 09/10/23 08:57
History of Present Illness
History of Present Illness:
HPI: I spoke to ED RN who spoke to EMS for history. She was reportedly found down at her assisted living facility today ([facility]), the patient is currently a poor historian does not quite understand why she is here. We are told she seems to be
weaker over the last few days as well.
EXAM:
GENERAL: Well appearing in no distress but lacks any significant spontaneous speech
HEENT: Moist oral mucosa
CARDIOVASCULAR: No murmurs, normal heart rate, regular rhythm, No chest wall tenderness
PULMONARY: No respiratory distress, breath sounds are clear and equal
ABDOMEN: Soft with no peritoneal signs, minimal if any tenderness
NEUROLOGIC: Good strength all extremities, no coordination deficits
PSYCHIATRIC: The patient is oriented to place and knows the month however she does not quite understand why she is here
EXTREMITIES: Nontender, no edema, moves all extremities equally
SKIN: No rash, no lesions
TIME OF INITIAL ENCOUNTER: 9 AM
NUMBER AND COMPLEXITY OF PROBLEMS ADDRESSED AT THE ENCOUNTER
� Chronic conditions affecting care: A-fib, CHF, high blood pressure, hyperlipidemia, has pacemaker, goiter, depression, has had cholecystectomy
� Acute Exacerbation and/or Progression of Chronic Illness: This is an acute problem
� Differential Diagnosis includes: Dehydration, [place], UTI, intracranial hemorrhage, rhabdomyolysis
AMOUNT AND/OR COMPLEXITY OF DATA TO BE REVIEWED AND ANALYZED
� I performed an independent evaluation of and my interpretation is:
EKG:
CT: I personally reviewed CT imaging of the brain and see no acute abnormality specifically no hemorrhage
X-rays:
Laboratory Studies: White count normal, hemoglobin normal, sodium 131 otherwise chemistries relatively unremarkable, CK normal
Other:
� Review of other/old records: I reviewed records. The patient was admitted here last month with change in mental status with concern for urinary tract infection and was empirically given IV antibiotics and ultimately was
discharged back to assisted living.
� Clinical information was obtained by an independent historian: EMS
� Prescriptions/Medications Considered but not given:
� Further testing considered but not performed: Consider EKG however she clearly has a regular rhythm on exam
RISK OF COMPLICATIONS AND/OR MORBIDITY OR MORTALITY OF PATIENT MANAGEMENT
� Social determinants of health affecting care: Resides at [facility]
� Discussion with other providers:
� Escalation of care including admission/observation vs risk of discharge considered: Given patient's age along with being on anticoagulation and found down, will obtain CT imaging of the brain. EMS indicated that the staff at
her facility was concerned for somewhat of a change in her mental status so labs will also be obtained. 500 mL fluid bolus was initially given that I ordered more as she had 3+ ketones in the urine. CBC unremarkable. No clear sign of urinary
tract based on urinalysis.
Past History
Past History
ED Past Medical History: Arrthythmia and CHF
ED Past Surgical History: Cardiac and Cholecystectomy
Social History
Tobacco: Non-smoker
Alcohol: None
Drug: None
Personal:
Living: assisted living
Employment: Not employed
Family History
Family History: Other (Noncontributory)
Phy Exam
Physical Exam
Physical Exam:
See HPI
Course
Orders/Labs/Results
Orders:
Orders
09/10/23 09:02
CT Head W/o Iv Contrast Stat
Comment:
Reason For Exam: found down ?change MS
0.9% Sodium Chloride 500 ml [Nss] 500 ml IV BOLUS
09/10/23 09:04
Straight cath- Treatment ONCE
09/10/23 09:13
Complete Blood Count/With Diff Urgent
Urinalysis Reflex To Culture Urgent
Date Specimen was Collected: 09/10/23
Time Specimen was Collected: 09:04
Urine Microscopic Reflex Cult Urgent
09/10/23 09:42
Comprehensive Metabolic Panel Urgent
Creatine Phosphokinase Urgent
TSH Reflex To Free T4 Urgent
09/10/23 10:25
0.9% Sodium Chloride 500 ml [Nss] 500 ml IV BOLUS
Abnormal Lab Results
09/10/23 09/10/23
09:13 09:42
RBC 3.86 L 10^6/uL
(4.20-5.40)
Hct 34.2 L %
(37.0-47.0)
MCH 32.1 H pg
(27.0-31.0)
Absolute Neuts (auto) 7.8 H 10^3/uL
(1.4-6.5)
Absolute Lymphs (auto) 0.8 L 10^3/uL
(1.2-3.4)
Absolute Monos (auto) 1.2 H 10^3/uL
(0.1-0.6)
Neutrophils % 79.4 H %
(42.2-75.2)
Lymphocytes % 7.9 L %
(20.5-51.1)
Monocytes % 12.1 H %
(1.7-9.3)
Sodium 131 L mmol/L
(135-145)
Chloride 95 L mmol/L
(98-107)
Glucose 120 H mg/dl
(70-99)
Alkaline Phosphatase 36 L U/L
(38-126)
Total Protein 6.0 L g/dl
(6.3-8.2)
Urine Ketones 3+ A
(Negative)
Leukocyte Esterase Rfl Trace A
(Negative)
Urine Glucose 1+ A
(Negative)
09/10/23 09:13
09/10/23 09:42
Vital Signs
Initial and Last Documented VS:
Initial Vital Signs
Temp Pulse Resp BP Pulse Ox
98.5 F 76 16 162/86 95
09/10/23 09:01 09/10/23 09:01 09/10/23 09:01 09/10/23 09:01 09/10/23 09:01
Last Documented Vital Signs
Temp Pulse Resp BP Pulse Ox
98.5 F 76 16 162/86 95
09/10/23 09:01 09/10/23 09:01 09/10/23 09:01 09/10/23 09:01 09/10/23 09:01
*Critical Care Note
Total Time (30-74mins, 75-104mins- exclusive of procedures): Not Applicable
ED Attending Note
-
Portions of this chart may have been created with voice recognition software.� Occasional wrong word or��sound alike� substitutions may have occurred due to the inherent limitations of voice recognition software.
Discharge Plan
Departure
Patient Disposition: Home (Routine Discharge)
Date of Disposition: 09/10/23
Time of Disposition: 10:25
Patient with high blood pressure during this ER visit?: Yes
Discharge Problem:
Fall
Instructions: Preventing falls in adults, BLOOD PRESSURE
Prescriptions:
No Action
losartan 50 mg Tablet
50 mg PO BID
sennosides [senna] 8.6 mg Tablet
8.6 mg PO DAILY
metoprolol succinate 50 mg Tablet Extended Release 24 Hr
50 mg PO QPM
potassium chloride 10 mEq Tablet Extended Release
10 meq PO DAILY
amlodipine 5 mg Tablet
5 mg PO HS
levothyroxine 25 mcg Tablet
25 mcg PO DAILY
docusate sodium [Colace] 100 mg Capsule
100 mg PO HS
furosemide 20 mg Tablet
20 mg PO BID
acetaminophen 500 mg Capsule
1,000 mg PO Q8H PRN (Reason: moderate-severe pain)
simethicone 80 mg Tablet,Chewable
80 mg PO Q12H PRN (Reason: gas)
rosuvastatin 10 mg Tablet
10 mg PO HS
acetaminophen 325 mg Capsule
650 mg PO Q4H PRN (Reason: mild pain/temp>100F)
Systane Gel 0.4-0.3 % Drops,Gel
1 drp OPHTHALMIC (EYE) DAILY PRN (Reason: dry eyes)
Eliquis 2.5 mg Tablet
2.5 mg PO BID
latanoprost 0.005 % drops
1 drp BOTH EYES HS
calcium carbonate [Calcium 600] 600 mg calcium (1,500 mg) Tablet
600 mg PO DAILY
meclizine 25 mg Tablet
50 mg PO DAILY PRN (Reason: motion sickness)
carbamide peroxide 6.5 % Drops
5 drp EACH EAR [id number] PRN (Reason: ear wax)
multivitamin with minerals Tablet
1 tab PO DAILY
I-Marily 300 mcg-200 mg-27 mg-2 mg Tablet
1 tab PO QPM
loperamide [Imodium A-D] 2 mg capsule
2 mg PO Q6H PRN (Reason: diarrhea)
cefuroxime axetil 250 mg Tablet
250 mg PO BID 5 Days Qty: 10 0RF
Referrals:
Jerica Chua MD [Family Provider] -
Activity Restrictions/Additional Instructions:
Basic blood work is unremarkable with exception of slightly low sodium. Ketones are noted in the urine which can suggest some dehydration�you were given IV fluids. There is no clear sign of a urinary tract infection. CAT scan of the brain shows
no bleeding. Return here if worse.
Interventions
Interventions:
*Risk Screen - Suicide Last Done: 09/10/23 09:05
*General Assessment Last Done: 09/10/23 09:07
*Neglect/Abuse Screening Last Done: 09/10/23 09:05
ED- Neurological Assessment Last Done: 09/10/23 09:16
Discharge Date and Time
Print Language: GREENLAND[place]
[2023-09-10 08:58] VITALS: BP 158/89
[2023-09-10 09:01] VITALS: BP 162/86
[2023-09-10 09:05] VITALS: BMI 16.8
[2023-09-10 09:21] LABS: % Basophils 0.2 % (0-2); % Eosinophils 0.1 % (0-6); % Immature Granulocytes 0.3 % (0-0.5); % Lymphocytes 7.9 % (20.5-51.1); % Monocytes 12.1 % (1.7-9.3); % Neutrophils 79.4 % (42.2-75.2); Absolute Lymphocytes 0.8 10^3/uL (1.2-3.4); Absolute Monocytes 1.2 10^3/uL (0.1-0.6); Absolute Neutrophils 7.8 10^3/uL (1.4-6.5); Hematocrit 34.2 % (37.0-47.0); Hemoglobin 12.4 g/dL (12.0-16.0); Mean Corp Hgb Conc. 36.3 g/dL (33.0-37.0); Mean Corpuscular Hgb 32.1 pg (27.0-31.0); Mean Corpuscular Volume 88.6 fL (81.0-99.0); Nucleated Red Blood Cells % 0 %; Platelet Count 151 10^3/uL (130-400); Red Blood Cell Count 3.86 10^6/uL (4.20-5.40); Red Cell Dist. Width 13.2 % (11.5-14.5); White Blood Cell Count 9.9 10^3/uL (4.8-10.8)
[2023-09-10] MEDS: NSS 500 IV ×2 (09:53→10:43)
[2023-09-10 10:00] LABS: ALT (SGPT) 11 U/L (0-35); AST (SGOT) 17 U/L (14-36); Albumin 3.5 g/dl (3.5-5.0); Alkaline Phosphatase 36 U/L (38-126); Blood Urea Nitrogen 10 mg/dl (7-17); Calcium 8.9 mg/dl (8.4-10.2); Carbon Dioxide 29 mmol/L (22-30); Chloride 95 mmol/L (98-107); Creatine Phosphokinase 32 U/L (30-135); Estimated Creatinine Clearance 45 ml/min; Glucose 120 mg/dl (70-99); Potassium 3.5 mmol/L (3.5-5.1); Sodium 131 mmol/L (135-145); Total Bilirubin 0.8 mg/dl (0.2-1.3); eGFR > 60.00
[2023-09-10 10:10] LABS: Urine Albumin Trace (Neg - Trace); Urine Bilirubin Negative (Negative); Urine Character Slightly Cloudy (Clear); Urine Glucose 1+ (Negative); Urine Ketone 3+ (Negative); Urine Leukocyte Trace (Negative); Urine Nitrite Negative (Negative); Urine Occult Blood Negative (Negative); Urine Urobilinogen Negative (Neg - 1+)
[2023-09-10 10:15] LABS: Urine Color Yellow
[2023-09-10 10:30] LABS: Urine Bacteria Moderate (Negative); Urine Red Blood Cell None Seen /HPF (0-2); Urine Squamous Cell 0-2 /LPF (Few)
[2023-09-10 10:34] LABS: TSH Reflex To Free T4 1.56 uIU/ml (0.47-4.68)
[2023-09-10 12:00] VITALS: BP 152/97
[2023-09-10 13:00] VITALS: BP 150/98
[2023-09-10 14:00] VITALS: BP 147/106
== END 2023-09-10 14:23 | disposition home or self-care (01) ==
LOC: EMR 08:53
PROVIDERS: EMERGENCY PHYSICIAN Emergency Medicine; FAMILY PHYSICIAN Family Medicine
DX: R53.1 Weakness (principal); W19.XXXA Unspecified fall, initial encounter; I11.0 Hypertensive heart disease with heart failure; I48.91 Unspecified atrial fibrillation; I50.9 Heart failure, unspecified; E78.5 Hyperlipidemia, unspecified; Z95.0 Presence of cardiac pacemaker
CPT/HCPCS: 99284; 70450; 80053; 81003; 81015; 82550; 84443; 85025; 87086

== ENCOUNTER 2023-09-13 19:10 | Emergency (ER) | payer OTHER, SELFPAY ==
[2023-09-13 19:14] VITALS: BP 150/90
[2023-09-13 19:15] VITALS: BP 144/94
--- NOTE | 2023-09-13 19:16 | ED.GENMED ---
History of Present Illness
General
Chief Complaint: Fall
Source: patient
Exam Limitations: none
Time Seen by Provider: 09/13/23 19:12
History of Present Illness
History of Present Illness:
See MDM
Past History
Past History
ED Past Medical History: Arrthythmia and CHF
ED Past Surgical History: Cardiac and Cholecystectomy
Social History
Tobacco: Non-smoker
Alcohol: None
Drug: None
Personal:
Living: assisted living
Employment: Not employed
Family History
Family History: Other (Noncontributory)
Phy Exam
Physical Exam
Physical Exam:
See MDM
Course
Orders/Labs/Results
Orders:
Orders
09/13/23 19:15
Electrocardiogram (*1) Urgent
Reason for Study: Fatigue / Weakness
CT Head W/o Iv Contrast Urgent
Comment:
Reason For Exam: fall
EKG- Treatment ONCE
09/13/23 19:16
Fosfomycin [Monurol] 3 gm PO ONCE ONE
Vital Signs
Initial and Last Documented VS:
Initial Vital Signs
Temp Pulse Resp BP Pulse Ox
97.9 F 80 19 150/90 96
09/13/23 19:14 09/13/23 19:14 09/13/23 19:14 09/13/23 19:14 09/13/23 19:14
Last Documented Vital Signs
Temp Pulse Resp BP Pulse Ox
97.9 F 80 19 138/88 96
09/13/23 19:14 09/13/23 19:14 09/13/23 19:14 09/13/23 20:00 09/13/23 19:14
MDM/Problems Addressed
Differential Diagnosis Includes:
HPI and MDM Narrative:
88-year-old female presenting with unwitnessed fall. She does have a history of dementia. The facility called on her behalf. Patient denying any complaints. Patient states she did not fall. She was just here for generalized weakness a few days
ago and had blood work performed. At that time, she had a urinalysis which showed bacteria but she did not have any clear symptoms so antibiotics were not started.
On exam, patient is very pleasant. There is no evidence of trauma. Heart regular rate and rhythm. No pelvic or hip tenderness. No evidence of trauma on exam. She seems adequately hydrated
Physical exam
General: Well appearing and non-toxic. Pleasant and smiling
HEENT: protecting airway. Moist mucous membrane
Neck: supple
CV: No evidence of cyanosis. Regular rate and rhythm
Resp: No accessory muscle use
Abd: Non-distended
Extremities: No deformities
Neuro: alert
Psych: Normal affect
Skin: Intact
Problems Addressed including Acute and Chronic Conditions affecting care:
1. Unwitnessed fall
Acuity: acute
Prognosis: stable
Details: Unsure if patient actually fell. She is currently denying it but she does have a history of dementia. No obvious trauma on exam. Will obtain CT head and EKG
2. Bacteriuria
Acuity: acute
Prognosis: stable
Details: Recent urinalysis showed evidence of bacteria. Given her age, increased weakness and dementia, will give dose of Monurol
Updates
Given the recent negative workup, low utility in repeating blood work. Given the questional fall, will obtain CT head. Will obtain EKG and will continue to keep on the monitor. Given the questionable urinalysis a few days ago, will give one-time
dose of Monurol
Differential Diagnosis (but not limited to):
Testing considered:
Drug therapy (if applicable): OTC meds, please see d/c instruction regarding Rx drugs
Amount and/or Complexity of Data Reviewed
Clinical info obtained from: Patient
External data reviewed: N/A
Labs I independently reviewed (but not limited to): N/A
Radiology: the CT scan was personally and independently reviewed. In addition, official CT report reviewed.
Pulse Ox: not hypoxic
EKG independently reviewed: Normal sinus rhythm, left axis, no STEMI
Laminating Machine Feeder: Sinus rhythm
Critical Care: N/A
Risk of Complication:
Social Determinants of health: Good social support
Discussed with other providers: N/A
Escalation of Care includes Admit/Obs: After being observed in the Emergency Department, pt stable for discharge.
Occasional wrong word or 'sound a like' substitutions may have occurred due to the inherent limitations of voice recognition software. Read the chart carefully and recognize, using context, where substitutions have occurred.
*Critical Care Note
Total Time (30-74mins, 75-104mins- exclusive of procedures): Not Applicable
ED Attending Note
-
Portions of this chart may have been created with voice recognition software.� Occasional wrong word or��sound alike� substitutions may have occurred due to the inherent limitations of voice recognition software.
Discharge Plan
Departure
Patient Disposition: Home (Routine Discharge)
Date of Disposition: 09/13/23
Time of Disposition: 21:25
Patient with high blood pressure during this ER visit?: Yes
Discharge Problem:
Bacteriuria
Instructions: BLOOD PRESSURE
Prescriptions:
No Action
losartan 50 mg Tablet
50 mg PO BID
sennosides [senna] 8.6 mg Tablet
8.6 mg PO DAILY
metoprolol succinate 50 mg Tablet Extended Release 24 Hr
50 mg PO QPM
potassium chloride 10 mEq Tablet Extended Release
10 meq PO DAILY
levothyroxine 25 mcg Tablet
25 mcg PO DAILY
docusate sodium [Colace] 100 mg Capsule
100 mg PO HS
furosemide 20 mg Tablet
20 mg PO MOWEFR
simethicone 80 mg Tablet,Chewable
80 mg PO Q12H PRN (Reason: gas)
Systane Gel 0.4-0.3 % Drops,Gel
1 drp ophthalmic (eye) DAILY PRN (Reason: dry eyes)
Rx Instructions:
09/13/2023, both eyes.
Eliquis 2.5 mg Tablet
2.5 mg PO BID
latanoprost 0.005 % drops
1 drp BOTH EYES HS
calcium carbonate [Calcium 600] 600 mg calcium (1,500 mg) Tablet
600 mg PO DAILY
meclizine 25 mg Tablet
50 mg PO DAILY PRN (Reason: motion sickness)
carbamide peroxide 6.5 % Drops
5 drp EACH EAR [id number] PRN (Reason: ear wax)
multivitamin with minerals Tablet
1 tab PO DAILY
I-Marily 300 mcg-200 mg-27 mg-2 mg Tablet
1 tab PO QPM
loperamide [Imodium A-D] 2 mg capsule
2 mg PO Q6H PRN (Reason: diarrhea)
acetaminophen 325 mg Tablet
650 mg PO Q4H MDD 3000 mg PRN (Reason: mild pain/temp>100F)
acetaminophen 500 mg Tablet
1,000 mg PO Q8HPRN PRN (Reason: moderate and severe pain)
Referrals:
Constantino Chua MD [Family Provider] -
Activity Restrictions/Additional Instructions:
Please return for any worsening symptoms.
You may return at any time if you have further concerns.
Please follow up with your doctor at the first available appointment, preferably this week.
Thank you for choosing [facility].
Interventions
Interventions:
*Risk Screen - Suicide Last Done: 09/13/23 19:14
*General Assessment Last Done: 09/13/23 19:14
*Neglect/Abuse Screening Last Done: 09/13/23 19:14
ED- Fall Risk Assessment Last Done: 09/13/23 20:11
*ED COVID-19 Vaccine History Last Done: 09/13/23 19:14
ED-Musculoskeletal Assessment Last Done: 09/13/23 20:11
ED- Neurological Assessment Last Done: 09/13/23 20:11
Discharge Date and Time
Print Language: LAO
[2023-09-13] MEDS: MONUROL 3 GM PO (19:49)
[2023-09-13 20:00] VITALS: BP 138/88
[2023-09-13 21:00] VITALS: BP 153/84
== END 2023-09-13 22:11 | disposition home or self-care (01) ==
LOC: EMR 19:10
PROVIDERS: EMERGENCY PHYSICIAN Student in an Organized Health Care Education/Training Program; FAMILY PHYSICIAN Internal Medicine
DX: R82.71 Bacteriuria (principal); R53.1 Weakness; W19.XXXA Unspecified fall, initial encounter; R03.0 Elevated blood-pressure reading, without diagnosis of hypertension; F03.90 Unspecified dementia, unspecified severity, without behavioral disturbance, psychotic disturbance, mood disturbance, and anxiety; I50.9 Heart failure, unspecified; Z90.49 Acquired absence of other specified parts of digestive tract; Z79.01 Long term (current) use of anticoagulants
CPT/HCPCS: 99284; 70450; 93005

== ENCOUNTER → 2023-09-20 21:00 | Outpatient (REF) | payer OTHER, SELFPAY ==
[2023-09-21 12:34] LABS: Urine Albumin Negative (Neg - Trace); Urine Bilirubin Negative (Negative); Urine Character Clear (Clear); Urine Color Yellow; Urine Glucose Negative (Negative); Urine Ketone Negative (Negative); Urine Leukocyte Trace (Negative); Urine Nitrite Negative (Negative); Urine Occult Blood Negative (Negative); Urine Urobilinogen Negative (Neg - 1+)
[2023-09-21 13:04] LABS: Urine Bacteria Few (Negative); Urine Red Blood Cell 0-2 /HPF (0-2)
== END ==
LOC: OLABWPC 21:00
PROVIDERS: ATTENDING PHYSICIAN Registered Nurse
DX: R30.0 Dysuria (principal)
CPT/HCPCS: 81003; 81015; 87086

== ENCOUNTER → 2024-02-28 10:38 | Outpatient (REF) | payer OTHER, SELFPAY ==
[2024-02-28 11:04] LABS: % Basophils 0.5 % (0-2); % Eosinophils 0.9 % (0-6); % Immature Granulocytes 0.3 % (0-0.5); % Lymphocytes 29.6 % (20.5-51.1); % Monocytes 10.2 % (1.7-9.3); % Neutrophils 58.5 % (42.2-75.2); Absolute Eosinophils 0.1 10^3/uL (0-0.7); Absolute Lymphocytes 1.7 10^3/uL (1.2-3.4); Absolute Monocytes 0.6 10^3/uL (0.1-0.6); Absolute Neutrophils 3.4 10^3/uL (1.4-6.5); Hematocrit 40.8 % (37.0-47.0); Hemoglobin 14.1 g/dL (12.0-16.0); Mean Corp Hgb Conc. 34.6 g/dL (33.0-37.0); Mean Corpuscular Hgb 33.2 pg (27.0-31.0); Mean Platelet Volume 10.7 fL (7.4-10.4); Nucleated Red Blood Cells % 0 %; Platelet Count 163 10^3/uL (130-400); Red Blood Cell Count 4.25 10^6/uL (4.20-5.40); Red Cell Dist. Width 13.7 % (11.5-14.5); White Blood Cell Count 5.9 10^3/uL (4.8-10.8)
[2024-02-28 11:36] LABS: ALT (SGPT) 16 U/L (0-35); AST (SGOT) 22 U/L (14-36); Albumin 4.4 g/dl (3.5-5.0); Alkaline Phosphatase 35 U/L (38-126); Blood Urea Nitrogen 21 mg/dl (7-17); Calcium 9.4 mg/dl (8.4-10.2); Carbon Dioxide 29 mmol/L (22-30); Chloride 100 mmol/L (98-107); Glucose 92 mg/dl (70-99); HDL Cholesterol 78 mg/dl; LDL Cholesterol, Calculated 148 mg/dl; Potassium 4.1 mmol/L (3.5-5.1); Sodium 140 mmol/L (135-145); Total Bilirubin 0.8 mg/dl (0.2-1.3); Total Cholesterol 246 mg/dl (50-199); Total Protein 6.7 g/dl (6.3-8.2); Triglyceride 103 mg/dl (10-149); Very Low Density Lipoprotein 20 mg/dl (0-30); eGFR > 60.00
== END ==
LOC: OLABWPC 10:38
PROVIDERS: ATTENDING PHYSICIAN Internal Medicine
DX: G92.8 Other toxic encephalopathy (principal); E03.9 Hypothyroidism, unspecified; E78.2 Mixed hyperlipidemia; I11.0 Hypertensive heart disease with heart failure
CPT/HCPCS: 36415; 80053; 80061; 84443; 85025

== ENCOUNTER → 2024-03-13 17:52 | Emergency (ER) | payer OTHER, SELFPAY ==
[2024-03-13 17:55] VITALS: BP 174/88; BMI 18.2
[2024-03-13 17:58] VITALS: BP 180/97
[2024-03-13 18:00] VITALS: BP 174/88
[2024-03-13 18:05] VITALS: BP 171/93
--- NOTE | 2024-03-13 18:09 | ED.GENMED ---
History of Present Illness
General
Chief Complaint: Musculo-Skeletal Complaint
Source: patient and ambulance crew
Time Seen by Provider: 03/13/24 18:01
History of Present Illness
History of Present Illness:
88-year-old female presents to the emergency room for evaluation after suffering a fall. Patient resides at [facility] in an independent apartment. She tripped getting out of an elevator. Patient has confusion at baseline. She has
some right knee pain. She denies striking her head. No other complaints. Patient does not take any anticoagulants.
Past History
Past History
ED Past Medical History: Arrthythmia and CHF
ED Past Surgical History: Cardiac and Cholecystectomy
Social History
Tobacco: Non-smoker
Alcohol: None
Drug: None
Personal:
Living: assisted living
Employment: Not employed
Family History
Family History: Other (Noncontributory)
Phy Exam
Physical Exam
Physical Exam:
General: Awake, Alert, Oriented X1. No acute distress.
Vitals: unremarkable
Head: Atraumatic
Eyes: Pupils equal, EOMI
Throat: Airway intact, no exudates
Neck: Trachea midline, no tenderness to palpation
Lungs: Clear and equal b/l
Heart: Regular rate, no murmurs
Abd: Soft, Nontender, No pulsatile mass
Pelvis: Stable, no tenderness
Neuro: Nonfocal
Skin: Warm, dry, no rash
Extremities: pulses equal b/l, no edema. Mild swelling ecchymosis noted right hip. Mild pain with flexion and extension. No pain at the hip with internal or external rotation.
Course
Orders/Labs/Results
Orders:
Orders
03/13/24 18:05
Knee, Right 4 or More Views [CR Knee- Right 4 Or More View*] Urgent
Comment:
Reason For Exam: pain after fall
03/13/24 18:06
CT Head W/o Iv Contrast Urgent
Comment:
Reason For Exam: fall ? head injury
Vital Signs
Initial and Last Documented VS:
Initial Vital Signs
Temp Pulse Resp BP Pulse Ox
98.5 F 72 16 174/88 100
03/13/24 17:55 03/13/24 17:55 03/13/24 17:55 03/13/24 17:55 03/13/24 17:55
Last Documented Vital Signs
Temp Pulse Resp BP Pulse Ox
98.5 F 67 16 128/74 99
03/13/24 17:55 03/13/24 20:00 03/13/24 20:00 03/13/24 20:00 03/13/24 20:00
MDM/Problems Addressed
Differential Diagnosis Includes:
Fracture, contusion, subdural
MDM/Problems Addressed:
No evidence of fracture on x-ray. CT of the head is normal. Patient stable for discharge back to her facility
*Radiology
Radiology exam reviewed: radiology read reviewed
*Pulse Oximetry
Patient hypoxic: no
*Critical Care Note
Total Time (30-74mins, 75-104mins- exclusive of procedures): Not Applicable
ED Attending Note
-
Portions of this chart may have been created with voice recognition software.� Occasional wrong word or��sound alike� substitutions may have occurred due to the inherent limitations of voice recognition software.
Discharge Plan
Departure
Patient Disposition: Usp/SNF
Date of Disposition: 03/13/24
Time of Disposition: 20:13
Condition: Good
Discharge Problem:
Contusion of knee
Instructions: Knee Pain (DC)
Prescriptions:
No Action
losartan 50 mg Tablet
50 mg PO BID
sennosides [senna] 8.6 mg Tablet
8.6 mg PO DAILY
metoprolol succinate 50 mg Tablet Extended Release 24 Hr
50 mg PO QPM
potassium chloride 10 mEq Tablet Extended Release
10 meq PO DAILY
levothyroxine 25 mcg Tablet
25 mcg PO DAILY
docusate sodium [Colace] 100 mg Capsule
100 mg PO HS
furosemide 20 mg Tablet
20 mg PO MOWEFR
simethicone 80 mg Tablet,Chewable
80 mg PO Q12H PRN (Reason: gas)
Systane Gel 0.4-0.3 % Drops,Gel
1 drp ophthalmic (eye) DAILY PRN (Reason: dry eyes)
Rx Instructions:
09/13/2023, both eyes.
Eliquis 2.5 mg Tablet
2.5 mg PO BID
latanoprost 0.005 % drops
1 drp BOTH EYES HS
calcium carbonate [Calcium 600] 600 mg calcium (1,500 mg) Tablet
600 mg PO DAILY
meclizine 25 mg Tablet
50 mg PO DAILY PRN (Reason: motion sickness)
carbamide peroxide 6.5 % Drops
5 drp EACH EAR [id number] PRN (Reason: ear wax)
multivitamin with minerals Tablet
1 tab PO DAILY
I-Marily 300 mcg-200 mg-27 mg-2 mg Tablet
1 tab PO QPM
loperamide [Imodium A-D] 2 mg capsule
2 mg PO Q6H PRN (Reason: diarrhea)
acetaminophen 325 mg Tablet
650 mg PO Q4H MDD 3000 mg PRN (Reason: mild pain/temp>100F)
acetaminophen 500 mg Tablet
1,000 mg PO Q8HPRN PRN (Reason: moderate and severe pain)
Interventions
Interventions:
*Risk Screen - Suicide Last Done: 03/13/24 17:55
*General Assessment Last Done: 03/13/24 17:55
*Neglect/Abuse Screening Last Done: 03/13/24 17:55
ED- Fall Risk Assessment Last Done: 03/13/24 17:55
*Nursing Disposition Last Done: 03/13/24 20:15
ED-Musculoskeletal Assessment Last Done: 03/13/24 17:55
Discharge Date and Time
Print Language: MONTENEGRIN
[2024-03-13 20:00] VITALS: BP 128/74
== END ==
LOC: EMR 17:52
PROVIDERS: EMERGENCY PHYSICIAN Emergency Medicine; FAMILY PHYSICIAN Internal Medicine
DX: S80.01XA Contusion of right knee, initial encounter (principal); S70.01XA Contusion of right hip, initial encounter; W01.0XXA Fall on same level from slipping, tripping and stumbling without subsequent striking against object, initial encounter; I50.9 Heart failure, unspecified; Z90.49 Acquired absence of other specified parts of digestive tract
CPT/HCPCS: 99284; 70450; 73564

== ENCOUNTER 2024-05-25 16:58 | Emergency (ER) | payer OTHER, SELFPAY ==
[2024-05-25 17:06] VITALS: BP 162/84
[2024-05-25 17:07] VITALS: BMI 17.4
--- NOTE | 2024-05-25 17:09 | ED.GENMED ---
History of Present Illness
General
Chief Complaint: Weakness
Source: patient
Exam Limitations: none
Time Seen by Provider: 05/25/24 17:04
History of Present Illness
History of Present Illness:
See MDM
Past History
Past History
ED Past Medical History: Arrthythmia and CHF
ED Past Surgical History: Cardiac and Cholecystectomy
Social History
Tobacco: Non-smoker
Alcohol: None
Drug: None
Personal:
Living: assisted living
Employment: Not employed
Family History
Family History: Other (Noncontributory)
Phy Exam
Physical Exam
Physical Exam:
See MDM
Course
Orders/Labs/Results
Orders:
Orders
05/25/24 17:06
Electrocardiogram (*1) Urgent
Reason for Study: Fatigue / Weakness
EKG- Treatment ONCE
05/25/24 17:07
0.9% Sodium Chloride 1000 ml [Nss] 1,000 ml IV BOLUS
05/25/24 17:08
Basic Metabolic Panel Urgent
COVID-19 Antigen Urgent
Source: Nasal Swab
Complete Blood Count/With Diff Urgent
Urinalysis Reflex To Culture Urgent
Date Specimen was Collected: 05/25/24
Time Specimen was Collected: 17:06
Urine Microscopic Reflex Cult Urgent
Influenza A+B Rapid Molecular Urgent
JANUARY Source: Nasal Swab
Specimen Description:
Urine Culture Urgent
JANUARY Source: U
Specimen Description:
Date Specimen was Collected: 05/25/24
Time Specimen was Collected: 17:06
05/25/24 19:05
Cephalexin Monohydrate [Keflex] 500 mg PO NOW STA
Abnormal Lab Results
05/25/24
17:08
RBC 3.80 L 10^6/uL
(4.20-5.40)
Hct 34.5 L %
(37.0-47.0)
MCH 32.9 H pg
(27.0-31.0)
MPV 10.8 H fL
(7.4-10.4)
Sodium 133 L mmol/L
(135-145)
BUN 27 H mg/dl
(7-17)
Glucose 145 H mg/dl
(70-99)
Urine Nitrite (Reflex) Positive A
(Negative)
Leukocyte Esterase Rfl 1+ A
(Negative)
05/25/24 17:08
05/25/24 17:08
Vital Signs
Initial and Last Documented VS:
Initial Vital Signs
Temp
97.9 F
05/25/24 17:02
Last Documented Vital Signs
Temp Pulse Resp BP Pulse Ox
97.9 F 69 18 162/84 96
05/25/24 17:02 05/25/24 17:06 05/25/24 17:06 05/25/24 17:06 05/25/24 17:06
MDM/Problems Addressed
Differential Diagnosis Includes:
HPI and MDM Narrative:
88-year-old female presenting for evaluation of generalized weakness. EMS indicating that they were told she is confused. Patient has baseline dementia. Patient is smiling and comfortable. When questioned whether she feels confused, patient
states she feels more weak rather than confused. Patient appears mildly dry. She does acknowledge that she is not eating or drinking much. She denies headache, chest pain, shortness of breath, palpitations or urinary symptoms. Will obtain viral
testing and provide IV fluids. Will obtain basic blood work looking for any metabolic abnormalities
Physical exam
General: Well appearing and non-toxic. Sitting in bed comfortably and smiling
HEENT: protecting airway. Dry mucous membranes
Neck: appears supple
CV: No evidence of cyanosis. Regular rate and rhythm
Resp: No accessory muscle use. Lungs clear
Abd: Non-distended and nontender
Extremities: No deformities. No leg edema
Neuro: alert
Psych: Normal affect
Skin: Intact
Problems Addressed including Acute and Chronic Conditions affecting care:
1. Generalized weakness
Acuity: acute
Prognosis: stable
Details: Potential in the settings of dehydration. Will give IV fluids. Obtain basic blood work, EKG and urinalysis
Updates
Throughout her stay, patient appears to be sundowning and becoming more combative. Patient found to have a urinary tract infection. Will start Keflex
Differential Diagnosis (but not limited to): Dehydration, hyponatremia, UTI
Testing considered: CT head but she denies headache and she has no focal deficits
Drug therapy (if applicable): OTC meds, please see d/c instruction regarding Rx drugs
Amount and/or Complexity of Data Reviewed
Clinical info obtained from: Patient
External data reviewed: N/A
Labs I independently reviewed (but not limited to): Nitrate positive urine
Radiology: N/A
Pulse Ox: not hypoxic
EKG independently reviewed: Sinus rhythm, normal axis, no STEMI
Envelope Folding Machine Operator: Sinus rhythm
Critical Care: N/A
Risk of Complication:
Social Determinants of health: Good social support
Discussed with other providers: N/A
Escalation of Care includes Admit/Obs: After being observed in the Emergency Department, pt stable for discharge.
Occasional wrong word or 'sound a like' substitutions may have occurred due to the inherent limitations of voice recognition software. Read the chart carefully and recognize, using context, where substitutions have occurred.
*Critical Care Note
Total Time (30-74mins, 75-104mins- exclusive of procedures): Not Applicable
ED Attending Note
-
Portions of this chart may have been created with voice recognition software.� Occasional wrong word or��sound alike� substitutions may have occurred due to the inherent limitations of voice recognition software.
Discharge Plan
Departure
Patient Disposition: Home (Routine Discharge)
Date of Disposition: 05/25/24
Time of Disposition: 19:07
Patient with high blood pressure during this ER visit?: No
Discharge Problem:
Acute UTI
Instructions: Urinary tract infection in adults - ED discharge instructions
Prescriptions:
New
cephalexin 500 mg capsule
500 mg PO BID 5 Days Qty: 10 0RF
No Action
losartan 50 mg Tablet
50 mg PO BID
sennosides [senna] 8.6 mg Tablet
8.6 mg PO DAILY
metoprolol succinate 50 mg Tablet Extended Release 24 Hr
50 mg PO QPM
potassium chloride 10 mEq Tablet Extended Release
10 meq PO DAILY
levothyroxine 25 mcg Tablet
25 mcg PO DAILY
docusate sodium [Colace] 100 mg Capsule
100 mg PO HS
furosemide 20 mg Tablet
20 mg PO MOWEFR
simethicone 80 mg Tablet,Chewable
80 mg PO [id number] PRN (Reason: gas)
Systane Gel 0.4-0.3 % Drops,Gel
1 drp ophthalmic (eye) DAILY PRN (Reason: both eyes)
Eliquis 2.5 mg Tablet
2.5 mg PO BID
latanoprost 0.005 % drops
1 drp BOTH EYES HS
calcium carbonate [Calcium 600] 600 mg calcium (1,500 mg) Tablet
600 mg PO DAILY
meclizine [Dramamine (meclizine)] 25 mg Tablet
50 mg PO DAILYPRN PRN (Reason: motion sickness)
carbamide peroxide 6.5 % Drops
5 drp EACH EAR [id number] PRN (Reason: ear wax)
multivitamin with minerals Tablet
1 tab PO DAILY
I-Marily 300 mcg-200 mg-27 mg-2 mg Tablet
1 tab PO QPM
loperamide [Imodium A-D] 2 mg capsule
2 mg PO Q6HPRN PRN (Reason: diarrhea)
acetaminophen 325 mg Tablet
650 mg PO Q4HPRN MDD 3000 mg PRN (Reason: mild pain/temp>100F)
acetaminophen 500 mg Tablet
1,000 mg PO Q8HPRN PRN (Reason: moderate and severe pain)
donepezil 5 mg Tablet
5 mg PO HS
Refresh Optive 0.5-0.9 % Drops
1 drp BOTH EYES TID
Referrals:
Constantino Chua MD [Family Provider] -
Activity Restrictions/Additional Instructions:
Please return for any worsening symptoms.
You may return at any time if you have further concerns.
Please follow up with your doctor at the first available appointment, preferably this week.
Thank you for choosing [facility].
Interventions
Interventions:
*Risk Screen - Suicide Last Done: 05/25/24 17:07
*General Assessment Last Done: 05/25/24 17:07
*Neglect/Abuse Screening Last Done: 05/25/24 17:07
ED- Fall Risk Assessment Last Done: 05/25/24 17:07
*ED COVID-19 Vaccine History Last Done: 05/25/24 17:07
ED- Pulmonary Assessment Last Done: 05/25/24 17:07
ED- Neurological Assessment Last Done: 05/25/24 17:07
ED- Cardiac Assessment Last Done: 05/25/24 17:07
Discharge Date and Time
Print Language: MOHAWK
[2024-05-25] MEDS: NSS 1000 IV (17:17)
[2024-05-25 17:22] LABS: % Basophils 0.5 % (0-2); % Eosinophils 0.8 % (0-6); % Immature Granulocytes 0.5 % (0-0.5); % Lymphocytes 21.5 % (20.5-51.1); % Monocytes 8.4 % (1.7-9.3); % Neutrophils 68.3 % (42.2-75.2); Absolute Eosinophils 0.1 10^3/uL (0-0.7); Absolute Lymphocytes 1.4 10^3/uL (1.2-3.4); Absolute Monocytes 0.6 10^3/uL (0.1-0.6); Absolute Neutrophils 4.6 10^3/uL (1.4-6.5); Hematocrit 34.5 % (37.0-47.0); Hemoglobin 12.5 g/dL (12.0-16.0); Mean Corp Hgb Conc. 36.2 g/dL (33.0-37.0); Mean Corpuscular Hgb 32.9 pg (27.0-31.0); Mean Corpuscular Volume 90.8 fL (81.0-99.0); Mean Platelet Volume 10.8 fL (7.4-10.4); Nucleated Red Blood Cells % 0 %; Platelet Count 215 10^3/uL (130-400); Red Cell Dist. Width 13.9 % (11.5-14.5); White Blood Cell Count 6.7 10^3/uL (4.8-10.8)
[2024-05-25 17:41] LABS: Blood Urea Nitrogen 27 mg/dl (7-17); Calcium 9.4 mg/dl (8.4-10.2); Carbon Dioxide 26 mmol/L (22-30); Chloride 99 mmol/L (98-107); Estimated Creatinine Clearance 46 ml/min; Glucose 145 mg/dl (70-99); Sodium 133 mmol/L (135-145); eGFR > 60.00
[2024-05-25 18:23] LABS: COVID-19 Antigen Negative (Negative)
[2024-05-25 18:41] LABS: Urine Albumin Negative (Neg - Trace); Urine Bilirubin Negative (Negative); Urine Character Clear (Clear); Urine Color Yellow; Urine Glucose Negative (Negative); Urine Ketone Negative (Negative); Urine Leukocyte 1+ (Negative); Urine Nitrite Positive (Negative); Urine Occult Blood Negative (Negative); Urine Specific Gravity 1.015 (<1.030); Urine Urobilinogen Negative (Neg - 1+); Urine pH 6.5 (5.0-9.0)
[2024-05-25 19:09] LABS: Urine Squamous Cell 0-2 /LPF (Few)
[2024-05-25 19:10] LABS: Urine Bacteria Many (Negative); Urine Red Blood Cell 0-2 /HPF (0-2); Urine White Cell 30-40 /HPF (0-5)
--- NOTE | 2024-05-25 19:28 | ED TECH ---
Family member showed up and they are going to take the patient back to [facility] dispatcher Luz was notified to cancel the transportation.
[2024-05-25] MEDS: KEFLEX 500 MG PO (19:36)
== END 2024-05-25 19:50 | disposition home or self-care (01) ==
LOC: EMR 16:58
PROVIDERS: EMERGENCY PHYSICIAN Student in an Organized Health Care Education/Training Program; FAMILY PHYSICIAN Internal Medicine
DX: N39.0 Urinary tract infection, site not specified (principal); Z11.52 Encounter for screening for COVID-19
CPT/HCPCS: 99284; 96360; 80048; 81003; 81015; 85025; 87077; 87086; 87502; 87811; 93005